=== PATIENT | female | born 1995 | race Caucasian/White ===

== ENCOUNTER 2020-12-23 05:45 | Inpatient (IN) ==
[2020-12-23] MEDS ORDERED: Famotidine 20 MG/2 ML VIAL IVP PRN (05:58)
[2020-12-23] MEDS ORDERED: Metoclopramide 10 MG/2 ML VIAL IVP PRN ×2 (05:58→11:43)
[2020-12-23] MEDS ORDERED: Azithromycin 500 MG in 0.9 % Sodium Chloride 250 ML IVPB ONE (05:58)
[2020-12-23] MEDS ORDERED: Naloxone 0.4 MG/ML INJ IVP PRN (05:58)
[2020-12-23] MEDS ORDERED: Ringers Solution, Lactated 1,000 ML IVC ONE (05:59)
[2020-12-23] MEDS ORDERED: Ringers Solution, Lactated 1,000 ML IVC SCH (06:00)
[2020-12-23 06:29] LABS: Basophils % 0.2 %; Eosinophils # 0.1 K/mcL (0.0-0.6); Eosinophils % 0.9 %; Hematocrit 33.5 % (35.3-44.9); Hemoglobin 10.9 g/dL (11.5-15.4); Lymphocytes # 2.6 K/mcL (0.6-4.6); Lymphocytes % 24.7 %; Mean Corpuscular HGB Conc 32.5 g/dL (31.6-35.5); Mean Corpuscular Hemoglobin 28.8 pg (28.0-33.3); Mean Corpuscular Volume 88.4 fL (83.0-100.0); Mean Platelet Volume 11.3 fL (9.4-12.4); Monocytes # 0.7 K/mcL (0.0-1.3); Monocytes % 6.8 %; Platelet Count 158 K/mcL (140-400); Red Blood Count 3.79 M/mcL (3.82-4.97); Segmented Neutrophils % 66.4 %; White Blood Count 10.5 K/mcL (4.3-11.1)
[2020-12-23] MEDS ORDERED: Ibuprofen 400 MG TABLET PO PRN (07:06)
[2020-12-23] MEDS ORDERED: Ondansetron 4 MG/2 ML VIAL IVP PRN ×2 (07:06→11:43)
[2020-12-23] MEDS ORDERED: *HR* OxyCODONE/APAP 5/325 TABLET PO PRN ×2 (07:06→11:43)
[2020-12-23] MEDS ORDERED: Acetaminophen IV 1,000 MG/100 ML BAG IVPB ONE ×2 (07:07→08:07)
[2020-12-23] MEDS ORDERED: Oxytocin 20 units/ LR 1000 mL 40 UNIT/2,000 ML BAG IVC ONE (07:16)
[2020-12-23] MEDS ORDERED: *HR* Morphine Sulfate/PF 10 MG/10 ML AMPUL ONE (07:20)
[2020-12-23] MEDS ORDERED: Dexamethasone 4 MG/ML VIAL ONE (07:20)
[2020-12-23] MEDS ORDERED: *HR* FentaNYL (PF) 100 MCG/2 ML VIAL ONE (07:20)
[2020-12-23] MEDS ORDERED: EPHEDrine 50 MG/ML VIAL ONE (07:20)
[2020-12-23] MEDS ORDERED: Clindamycin 900 MG/50 ML 900 MG/50 ML IV.SOLN IVPB ONE (07:20)
[2020-12-23] MEDS ORDERED: Ondansetron 4 MG/2 ML VIAL ONE (07:20)
[2020-12-23] MEDS ORDERED: *HR* Phenylephrine 10 MG/ML VIAL ONE (07:22)
[2020-12-23 07:51] LABS: Amphetamine Screen,Urine Negative ng/mL (Cutoff=1000); Barbiturate Screen,Urine Negative ng/mL (Cutoff=200); Benzodiazepines Screen,Urine Negative ng/mL (Cutoff=200); Cannabinoid Screen,Urine Negative ng/mL (Cutoff = 50); Cocaine Screen,Urine Negative ng/mL (Cutoff= 300); Opiate Screen,Urine Negative ng/mL (Cutoff=300); Phencyclidine Screen,Urine Negative ng/mL (Cutoff=25)
[2020-12-23] MEDS ORDERED: Sennosides 8.6 MG TABLET PO PRN (11:43)
[2020-12-23] MEDS ORDERED: Simethicone 80 MG TAB.CHEW PO PRN (11:43)
[2020-12-23] MEDS ORDERED: Rho Immune Globulin 1,500 UNIT SYRINGE IM ONE (11:43)
[2020-12-23] MEDS ORDERED: NON-FORMULARY MEDICATION 1 EACH EACH (Prenatal Vits #90/Iron Fum/Fa [Prenatal Formula Tabl PO SCH (11:43)
[2020-12-23] MEDS ORDERED: Oxytocin 20 units/ LR 1000 mL 20 UNIT/1,000 ML BAG IVC SCH (11:43)
[2020-12-23] MEDS: Ibuprofen 600 MG TABLET PO PRN (13:53)
[2020-12-23] MEDS: metroNIDAZOLE 500 MG TABLET PO SCH ×2 (13:53→19:45)
[2020-12-23] MEDS: Clindamycin 900 MG/50 ML 900 MG/50 ML IV.SOLN IVPB SCH (15:43)
[2020-12-24] MEDS: Clindamycin 900 MG/50 ML 900 MG/50 ML IV.SOLN IVPB SCH ×2 (00:28→08:35)
[2020-12-24] MEDS: Ibuprofen 600 MG TABLET PO PRN ×3 (03:40→19:39)
[2020-12-24 04:03] LABS: Basophils % 0.2 %; Eosinophils % 0.2 %; Hematocrit 23.1 % (35.3-44.9); Immature Granulocytes % 0.8 % (0-4); Lymphocytes # 2.6 K/mcL (0.6-4.6); Lymphocytes % 17.7 %; Mean Corpuscular HGB Conc 32.5 g/dL (31.6-35.5); Mean Corpuscular Hemoglobin 28.8 pg (28.0-33.3); Mean Corpuscular Volume 88.8 fL (83.0-100.0); Mean Platelet Volume 11.2 fL (9.4-12.4); Monocytes # 1.1 K/mcL (0.0-1.3); Monocytes % 7.6 %; Neutrophils # 10.6 K/mcL (1.6-8.9); Platelet Count 152 K/mcL (140-400); Red Cell Distribution Width 12.8 % (11.5-14.5); Segmented Neutrophils % 73.5 %; White Blood Count 14.5 K/mcL (4.3-11.1)
[2020-12-24 04:04] LABS: Hemoglobin 7.5 g/dL (11.5-15.4)
[2020-12-24] MEDS: metroNIDAZOLE 500 MG TABLET PO SCH ×3 (08:26→19:39)
[2020-12-24] MEDS: Prenatal Vit/FA 1 EACH TABLET PO SCH (08:26)
[2020-12-24] MEDS ORDERED: Rho Immune Globulin 1,500 UNIT SYRINGE IM ONE (15:04)
[2020-12-25] MEDS: Ibuprofen 600 MG TABLET PO PRN ×2 (02:31→09:05)
[2020-12-25 08:13] VITALS: BP 98/67
[2020-12-25] MEDS: Prenatal Vit/FA 1 EACH TABLET PO SCH (09:05)
[2020-12-25] MEDS: metroNIDAZOLE 500 MG TABLET PO SCH (09:05)
[2020-12-25 10:52] LABS: Basophils % 0.3 %; Eosinophils # 0.2 K/mcL (0.0-0.6); Eosinophils % 1.9 %; Hematocrit 24.8 % (35.3-44.9); Hemoglobin 7.9 g/dL (11.5-15.4); Lymphocytes # 1.7 K/mcL (0.6-4.6); Lymphocytes % 17.5 %; Mean Corpuscular HGB Conc 31.9 g/dL (31.6-35.5); Mean Corpuscular Hemoglobin 28.6 pg (28.0-33.3); Mean Corpuscular Volume 89.9 fL (83.0-100.0); Mean Platelet Volume 11.3 fL (9.4-12.4); Monocytes # 0.6 K/mcL (0.0-1.3); Monocytes % 6.3 %; Neutrophils # 7.1 K/mcL (1.6-8.9); Platelet Count 180 K/mcL (140-400); Red Blood Count 2.76 M/mcL (3.82-4.97); Red Cell Distribution Width 13.3 % (11.5-14.5); White Blood Count 9.8 K/mcL (4.3-11.1)
== END 2020-12-25 12:40 | disposition home or self-care (01) | DRG 787 ==
LOC: 1NENULAB 05:56 → 1NENUOBS 11:19
PROVIDERS: ADMIT Obstetrics & Gynecology; ATTEND Obstetrics & Gynecology